=== PATIENT | male | born 1950 | race Caucasian/White ===

== ENCOUNTER 2024-07-01 05:37 | Outpatient (CLI) | payer MEDICARE | END 2024-07-01 23:59 | disposition home or self-care (01) | LOC: MRI02 05:37 | PROVIDERS: ATTEND Family Medicine Sports Medicine | DX: M17.12 Unilateral primary osteoarthritis, left knee (principal); M65.962 Unspecified synovitis and tenosynovitis, left lower leg; M22.42 Chondromalacia patellae, left knee; M85.662 Other cyst of bone, left lower leg; M25.562 Pain in left knee; M25.462 Effusion, left knee; M77.9 Enthesopathy, unspecified | CPT/HCPCS: 73721 ==